=== PATIENT | female | born 1935 | race Caucasian/White ===

== ENCOUNTER 2022-06-23 12:19 | Observation (INO) | payer MEDICARE ==
[2022-06-23 13:18] LABS: #Eosinphils 0.3 10x3/uL (0.0-0.5); #Monocytes 0.4 10x3/uL (0.0-1.1); #Neutrophils 3.7 10x3/uL (1.5-8.4); %Basophils 0.3 % (0.0-2.0); %Eosinophils 5.7 % (0.0-6.0); %Lymphocytes 23.1 % (18.0-47.0); %Monocytes 6.8 % (0.0-10.0); %Neutrophils 63.8 % (40.0-75.0); Mean Corpuscular HGB CONC 32.6 g/dL (32.0-36.0); Mean Corpuscular Hemoglobin 30.6 pg (27.0-33.0); Mean Corpuscular Volume 93.9 fl (81.6-98.3); Mean Platelet Volume 10.7 fl (7.4-10.4); Platelet Count 133 10x3/uL (150-450); RBC Distribution Width 13.3 % (11.5-14.5); Red Blood Cell (RBC) Count 3.92 10x6/uL (3.90-5.03); White Blood Cell (WBC) Count 5.8 10x3/uL (3.5-10.5)
[2022-06-23 13:28] LABS: Anisocytosis SLIGHT = 6-15 cells (100X) (0-5/hpf); Hypochromia SLIGHT = 6-15 cells (100X) (0-5/hpf); Platelet Morphology Comment Appears Adequate
[2022-06-23 14:45] LABS: Bilirubin Neg (Negative); Blood, Urine Negative (Negative); Clarity Cloudy (Clear); Glucose, Urine (Dipstick) Normal (Negative); Ketone, Urine Negative (Negative); Leukocyte 25 (Negative); Nitrite Positive (Negative); Protein, Urine (Dipstick) Negative (Neg-Trace); Specific Gravity, Urine 1.005 (1.005-1.030); Urobilinogen Normal mg/dL (Less than 2)
[2022-06-23 15:01] LABS: ALT (SGPT) 6 U/L (8-55); AST (SGOT) 16 U/L (5-34); Albumin 3.9 g/dL (3.4-4.8); Alkaline Phosphatase 100 U/L (40-110); Anion Gap 15 mmol/L (10-20); BUN (Urea Nitrogen) 23 mg/dL (9.8-20.1); Bilirubin, Total 0.4 mg/dL (0.2-1.2); CK (CPK) 31 U/L (29-168); Calc. Creatinine Clearance 0 mL/min (70-130); Calcium 9.7 mg/dL (7.8-10.44); Carbon Dioxide 22 mmol/L (23-31); Chloride 109 mmol/L (98-107); Estimated GFR 41; Globulin 2.6 g/dL (2.4-3.5); Glucose 100 mg/dL (83-110); Protein, Total 6.5 g/dL (5.8-8.1); Sodium 140 mmol/L (136-145)
[2022-06-23 15:02] LABS: Bacteria/HPF 3+ HPF (None Seen); Mucous/LPF 1+ LPF (<2+); RBC/HPF 0-3 HPF (0-3)
[2022-06-23 15:09] LABS: Potassium 6.1 mmol/L (3.5-5.1)
[2022-06-23] MEDS ORDERED: cefTRIAXone (ROCEPHIN) 1 GM VIAL ONE (18:26)
[2022-06-23] MEDS ORDERED: Acetaminophen 325 MG TAB PO PRN (20:45)
[2022-06-23] MEDS ORDERED: Ondansetron ODT 4 MG TAB PO PRN (20:45)
[2022-06-23] MEDS ORDERED: Senokot S 8.6-50 MG TAB PO PRN (20:45)
[2022-06-23] MEDS ORDERED: Calcium Carbonate 500 MG ChewTAB PO PRN (20:45)
[2022-06-23] MEDS ORDERED: Ondansetron PF 4 MG/2 ML Vial IVP PRN (20:45)
[2022-06-23] MEDS ORDERED: LOKELMA 10 GM PACKET PO SCH (21:00)
[2022-06-23 21:03] VITALS: BMI 35.2
[2022-06-23] MEDS: Sodium Chloride 0.9% 1,000 ML IV SCH (21:11)
[2022-06-23 21:13] LABS: Magnesium 1.8 mg/dL (1.6-2.6)
[2022-06-23] MEDS ORDERED: traZODone HCl 50 MG TAB PO SCH (22:30)
[2022-06-24 04:46] LABS: Anion Gap 12 mmol/L (10-20); BUN (Urea Nitrogen) 20 mg/dL (9.8-20.1); Calc. Creatinine Clearance 61 mL/min (70-130); Calcium 8.7 mg/dL (7.8-10.44); Carbon Dioxide 21 mmol/L (23-31); Chloride 113 mmol/L (98-107); Estimated GFR 52; Glucose 84 mg/dL (83-110); Potassium 4.6 mmol/L (3.5-5.1); Sodium 141 mmol/L (136-145)
[2022-06-24 04:55] LABS: #Eosinphils 0.3 10x3/uL (0.0-0.5); #Monocytes 0.4 10x3/uL (0.0-1.1); %Basophils 0.4 % (0.0-2.0); %Eosinophils 6.4 % (0.0-6.0); %Monocytes 7.9 % (0.0-10.0); %Neutrophils 65.1 % (40.0-75.0); Hemoglobin 10.2 g/dL (12.0-15.5); Mean Corpuscular HGB CONC 33.1 g/dL (32.0-36.0); Mean Corpuscular Hemoglobin 30.9 pg (27.0-33.0); Mean Corpuscular Volume 93.3 fl (81.6-98.3); Mean Platelet Volume 9.9 fl (7.4-10.4); Platelet Count 129 10x3/uL (150-450); RBC Distribution Width 13.1 % (11.5-14.5); White Blood Cell (WBC) Count 4.7 10x3/uL (3.5-10.5)
[2022-06-24] MEDS: Sodium Chloride 0.9% 1,000 ML IV SCH (05:09)
[2022-06-24] MEDS ORDERED: Loratadine 10 MG TAB PO SCH (09:00)
[2022-06-24] MEDS ORDERED: Metoprolol Tartrate 25 MG TAB PO SCH (09:00)
[2022-06-24] MEDS ORDERED: Cefdinir 300 MG CAP PO SCH (09:00)
[2022-06-24] MEDS ORDERED: Oxybutynin 5 MG TAB PO SCH (09:00)
[2022-06-24] MEDS ORDERED: Aspirin 81 mg Enteric Coated Tablet PO SCH (09:00)
[2022-06-24 12:20] VITALS: TEMP 97.2
[2022-06-24 13:06] VITALS: BP 146/69
[2022-06-24] MEDS ORDERED: traZODone HCl 50 MG TAB PO SCH (21:00)
[2022-06-24] MEDS ORDERED: Amlodipine 10 MG TAB PO SCH (21:00)
== END 2022-06-24 13:00 | disposition home health service (06) ==
LOC: CSHERS 12:19 → INTOOBSV 18:42 → CSHERHOLD 18:42 → CSHTELE 20:29
PROVIDERS: ADMIT Emergency Medicine; ATTEND Emergency Medicine
DX: E87.5 Hyperkalemia (principal); M99.71 Connective tissue and disc stenosis of intervertebral foramina of cervical region; M47.812 Spondylosis without myelopathy or radiculopathy, cervical region; M47.896 Other spondylosis, lumbar region; K21.9 Gastro-esophageal reflux disease without esophagitis; N18.32 Chronic kidney disease, stage 3b; N39.0 Urinary tract infection, site not specified; I12.9 Hypertensive chronic kidney disease with stage 1 through stage 4 chronic kidney disease, or unspecified chronic kidney disease; M17.9 Osteoarthritis of knee, unspecified; Z98.890 Other specified postprocedural states; Z90.49 Acquired absence of other specified parts of digestive tract; Z90.89 Acquired absence of other organs; Z98.49 Cataract extraction status, unspecified eye; Z79.82 Long term (current) use of aspirin; Z79.899 Other long term (current) drug therapy; W19.XXXA Unspecified fall, initial encounter
CPT/HCPCS: 51701; 72125; 72131; 73590; 80048; 80053; 82550; 83735; 83880; 84484; 85025 ×2; 93005; 96361; 96365; 96372; 97116; 97535; 99285; G0378 ×3; 36415; 81003; 81015; 93010; J0696; J1650; J7050